=== PATIENT | male | born 1970 | race African-American/Black ===

== ENCOUNTER 2018-10-13 17:18 | Emergency (ER) | payer OTHER ==
[~2018-10-13] VITALS: Ht 200.7 cm; Wt 115.9 kg
[2018-10-13 17:22] VITALS: BP 126/49; TEMP 98.2
[2018-10-13] MEDS ORDERED: HCTZ 25MG TAB25 MG PO (17:53)
[2018-10-13 18:59] VITALS: PULSE 88
== END 2018-10-13 19:45 | disposition home or self-care (01) ==
LOC: COL.ER 17:18
DX: M79.661 Pain in right lower leg (principal); I10 Essential (primary) hypertension; F17.210 Nicotine dependence, cigarettes, uncomplicated